=== PATIENT | female | born 1990 ===

== ENCOUNTER 2017-09-10 01:45 | Inpatient (IN) | payer MEDICAID ==
--- NOTE | 2017-09-10 02:32 | OBADHP ---
Datetime: 09/10/2017 02:25 Admit Comment, IP Provider: 40 y/o @ ? 40.1 wks by LMP however no prental care. pt gregory she [place] and never gets a care , no us, no bloodowkr nda all p regancies have been fine with no problems. P tpreorts laboring contraction pian at home since 9pm, dn ies vb, lof, +FM, dnies headache, blurry visin, ruq/epigastric pain VS 146/90 elevted VE; /-2 vtx intact A/P 40 y/o ? 40= wks NO CARE in labor -admit to L+D -npo, ivf -admissin and preeclamptic labs -vs perprotocol of elevated bp -dating sonogram -declined pain manamgent -r/b/a/i of care dw patietn Pelvic Type - PN: Adequate Extremities - PN: Normal Abdomen - PN: Normal Back - PN: Normal Breast - PN: Not Done Lungs - PN: Normal Heart - PN: Normal Thyroid - PN: Not Done Neurologic - PN: Normal HEENT - PN: Normal General - PN: Normal Presentation-Admit: Vertex FHR - Baseline A Provider: 150 Membranes, Provider: Intact Contraction Comments Provider: irregular Gestation - Est Wks by US: ?40.1 IP Hx Assessment: No Care IP Chief Complaint: Uterine contractions NICHD Variability Prov Fetus A: Moderate 6-25bpm FHR Category Provider Fetus A: Category I NICHD Decel Fetus A IP Provider: None Dilatation, Provider: 5 Effacement, Provider: 60 Station, Provider: -2 Genitourinary Exam: Normal DTRs - PN: Normal EGA AdmitDate IP: 40.1 IP Admit Plan: Admit to unit
[2017-09-10] MEDS ORDERED: Penicillin G 5 Million Unit Vial IVPB ONE (02:33)
[2017-09-10] MEDS ORDERED: Lactated Ringer's 1,000 ML IV SCH (02:45)
[2017-09-10] MEDS ORDERED: AMPicillin 2 GM in Sodium Chloride 100 ML IVPB SCH (04:00)
[2017-09-10 04:03] LABS: BASO % 0.4 % (0.0-2.0); EOS % 0.1 % (0.0-4.0); HEMOGLOBIN 8.2 g/dL (11.0-16.0); LYMPH # 1.7 K/uL (1.0-4.3); LYMPH % 24.2 % (20.0-40.0); MEAN CELL VOLUME 70.9 fL (81.0-99.0); MEAN CORPUSCULAR HEMOGLOBIN 21.8 pg (27.0-31.0); MEAN CORPUSCULAR HGB CONC 30.7 g/dL (33.0-37.0); MEAN PLATELET VOLUME 9.4 fL (7.2-11.7); MONO # 0.4 K/uL (0.0-0.8); MONO % 5.3 % (0.0-10.0); NRBC % 0.1 % (0.0-2.0); RBC 3.74 Mil/uL (3.80-5.20); RED CELL DISTRIBUTION WIDTH 17.7 % (11.5-14.5); WHITE BLOOD COUNT 7.1 K/uL (4.8-10.8)
[2017-09-10 04:07] LABS: SQUAMOUS EPITHIAL 65 /hpf (0-5); URINE BACTERIA OCC (<OCC); URINE BILIRUBIN NEGATIVE (NEGATIVE); URINE CLARITY Hazy (Clear); URINE COLOR Amber (YELLOW); URINE GLUCOSE (UA) NORMAL (Normal); URINE LEUKOCYTE ESTERASE 2+ Leu/uL (Negative); URINE PROTEIN 2+ mg/dL (NEGATIVE)
[2017-09-10] MEDS ORDERED: Gentamicin 80 mg/2mL Inj. ONE (04:12)
[2017-09-10 04:18] LABS: ALB/GLOB RATIO 0.9 (1.0-2.1); ALBUMIN 3.1 g/dL (3.5-5.0); ALT/SGPT 15 U/L (9-52); AST/SGOT 19 U/L (14-36); BLOOD UREA NITROGEN 8 mg/dL (7-17); CALCIUM 8.5 mg/dl (8.6-10.4); GFR AFRICAN-AMERICAN > 60; GFR NON-AFRICAN AMERICAN > 60
[2017-09-10 04:29] LABS: URINE BLOOD 1+ (NEGATIVE)
[2017-09-10] MEDS ORDERED: Oxycodone/Acetaminophen 5/325 mg Tab PO PRN ×2 (05:34)
--- NOTE | 2017-09-10 05:38 | OBDS ---
DELIVERY PERSONNEL Delivery Doctor: Deonte Herron MD Dial Lathe Operator: Slick Saavedra RN MATERNAL INFORMATION Delivery Anesthesia: None Medications in Delivery: PITOCIN 20 UNITS Estimated Blood Loss (ml): 100 Placenta Cultured: No Maternal Complications: Other Other Maternal Complications: Grand multip, No PNC, unknown GBS, Anemia Hgb 8.2, obesity Provider Comments: pt had US and c/o pushing, fully dilated pushed precipioutsly delivery of head wt ih shoulders folloew by body. meconum noted. umbilca cord clamped and cut. cord blood and cord gases colleated adn sent x 2. spontnaoeu delivery of intact placenta with membrnea. fundus firm, good hemos taiss, no lacerations, intact perienum. live female weight of 9lb 12 ounces ebwl 100ml no complicationss LABOR SUMMARY EDC: 09/09/2017 00:00 No. Babies in Womb: 1 Attempted: No Labor Anesthesia: None LABOR INFORMATION Reason for Induction: Not Applicable Onset of Labor: 09/09/2017 23:00 Complete Dilatation: 09/10/2017 05:23 Oxytocin: N/A Group B Beta Strep: Done, Result Unknown Antibiotics # of Doses: 2 Antibiotics Time of Last Dose: 0500 Steroids Given: None Reason Steroids Not Administered: Not Applicable MEMBRANES Membranes Rupture Method: Spontaneous Rupture of Membranes: 09/10/2017 05:23 Length of Rupture (hrs): 0.00 Amniotic Fluid Color: Heavy Meconium Amniotic Fluid Amount: Moderate Amniotic Fluid Odor: Normal STAGES OF LABOR Stage 1 hrs: 6 Stage 1 min: 23 Stage 2 hrs: 0 Stage 2 min: 0 Stage 3 hrs: 0 Stage 3 min: 2 Total Time in Labor hrs: 6 Total Time in Labor min: 25 VAGINAL DELIVERY Episiotomy: None Laceration Extension: N/A Laceration Type: None Laceration Repair: Not Applicable Initial Vag Sponge Count: 10 Final Vag Sponge Count: 10 Initial Vag Sharps Count: 0 Final Vag Sharps Count: 0 Sponge Count Correct: Yes; Vaginal Sweep Performed Sharps Count Correct: N/A BABY A INFORMATION Infant Delivery Date/Time: 09/10/2017 05:23 Method of Delivery: Vaginal Born in Route : No : N/A SHOULDER DYSTOCIA BABY A Delivery Date/Time: 09/10/2017 05:23 PRESENTATION/POSITION BABY A Presentation: Cephalic Cephalic Presentation: Vertex Vertex Position: Left Occipital Anterior PLACENTA INFORMATION BABY A Placenta Delivery Time : 09/10/2017 05:25 Placenta Method of Delivery: Spontaneous Placenta Status: Delivered SCORES BABY A Heart Rate 1 min: >100 bpm Resp Effort 1 min: Good Cry Reflex Irritability 1 min: Cough or Sneeze or Pulls Away Muscle Tone 1 min: Active Motion Color 1 min: Body [place], Extremities Blue SCORE 1 MIN: 9 Heart Rate 5 min: >100 bpm Resp Effort 5 min: Good Cry Reflex Irritability 5 min: Cough or Sneeze or Pulls Away Muscle Tone 5 min: Active Motion Color 5 min: Body [place], Extremities Blue SCORE 5 MIN: 9 INFANT INFORMATION BABY A Gestational Age at Delivery: 40.0 Gestational Status: Term Infant Outcome : Liveborn Condition : Stable Infant Sex: Female IDENTIFICATION/MEDS BABY A ID Band Number: [id number] ID Band Location: Right Leg; Right Arm Sensor Applied: Yes Sensor Number: [id number] Sensor Location : Cord Clamp Vitamin K Given : Aquamephyton 1 mg IM Erythromycin Given: Given Both Eyes WEIGHT/LENGTH BABY A Infant Birthweight (gms): 4430 Weight (lb): 9 Infant Weight (oz): 12 Infant Length Inches: 21.00 Length cms: 53.3 CORD INFORMATION BABY A No. Cord Vessels: 3 Nuchal Cord : N/A Cord Blood Taken: Yes Infant Suction: Mouth ASSESSMENT BABY A Infant Complications: Meconium Physical Findings at Delivery: Within Normal Limits Infant Respirations: Appears Normal Ribbon Weaver/ALS Called : No Infant Care By: JUDY JAVED Transferred To: Remains with Mother
[2017-09-10] MEDS ORDERED: Oxytocin 30 UNIT 30 UNITS/500 ML BAG IV SCH (05:45)
--- NOTE | 2017-09-10 06:53 | US ---
EXAM: US Biophysical Profile Without Non-Stress Testing EXAM DATE/TIME: 09/10/2017 2:38 AM CLINICAL HISTORY: 27 years old, female; Pain; Pain indication: Contractions; ; Additional info: No care, supected 40+wk, lga needs dating TECHNIQUE: Real-time ultrasound of the maternal pelvis for biophysical profile evaluation with image documentation. COMPARISON: No relevant prior studies available. FINDINGS: There is a single live intrauterine fetus in vertex presentation. Estimated gestational age is 39 weeks 2 days. Estimated due date is 09/15/2017. Estimated gestational age by dates there is 40 weeks 1 day. Estimated weight is 3787 g (8 lbs. 6 oz.), at approximately 62nd percentile. heart rate is 158 beats per minute. Placenta is anterior, no previa. Amniotic fluid volume is normal, JACQUELYN of 14.65. Cervix is not visualized. BPD: 9.4 cm, 38 weeks 3 days HC: 33.8 cm, previously 8 weeks 5 days AC: 35.7 cm, 39 weeks 4 days FL: 7.85 cm, 40 weeks 1 day The visualized parts include fluid filled stomach and bladder, very limited kidneys. Biophysical profile was performed with following scores: tone 2 breathing 2 movements 2 Amniotic fluid 2 Total score is 8 of 8. IMPRESSION: 1. Single live intrauterine fetus at 29 weeks 2 days. 2. Normal biophysical profile score.
[2017-09-10 16:54] LABS: RAPID PLASMA REAGIN NONREACTIVE (NONREACTIVE)
[2017-09-10] MEDS: Multiple Vitamins Tab PO SCH (18:46)
[2017-09-11 07:46] LABS: BASO % 0.5 % (0.0-2.0); EOS # 0.1 K/uL (0.0-0.7); EOS % 0.8 % (0.0-4.0); HEMOGLOBIN 8.6 g/dL (11.0-16.0); LYMPH # 2.3 K/uL (1.0-4.3); LYMPH % 32.5 % (20.0-40.0); MEAN CELL VOLUME 70.7 fL (81.0-99.0); MEAN CORPUSCULAR HEMOGLOBIN 22.5 pg (27.0-31.0); MEAN CORPUSCULAR HGB CONC 31.8 g/dL (33.0-37.0); MEAN PLATELET VOLUME 8.8 fL (7.2-11.7); MONO # 0.3 K/uL (0.0-0.8); MONO % 4.5 % (0.0-10.0); NEUT # 4.4 K/uL (1.8-7.0); NEUT % 61.7 % (50.0-75.0); RBC 3.82 Mil/uL (3.80-5.20); RED CELL DISTRIBUTION WIDTH 17.8 % (11.5-14.5); WHITE BLOOD COUNT 7.2 K/uL (4.8-10.8)
[2017-09-11] MEDS: Multiple Vitamins Tab PO SCH (10:32)
--- NOTE | 2017-09-11 17:05 | OBPPN ---
Datetime: 09/11/2017 15:03 PP Pain Prov: Within normal limits PP Nausea Prov: Denies PP Flatus Prov: Yes PP BM Prov: No PP Heart Prov: Normal PP Lungs Prov: Normal PP Abdomen/Uterus Prov: Normal PP Lochia Prov: Normal PP Extremities Prov: Normal PP Progress Prov: Normal PP Comments Phys Exam Prov: Abdomen: Soft, Non-tender, fundus is firm and 1cm below the umbilicus PP Impression Prov: Normal progression PP Plan Prov: Continue present management PP Progress Note Prov: Patient was seen and examined at bedside. Patient reports that she is doing w ell and has no complaints. Patient admits to moderate lochia, passing flatus, urinating without diffi culties. Patient is ambulating and tolerating diet. Patient denies fever, chills, nausea, vomiting, a bdominal pain, dizziness and calf tenderness Physical Exam: Gen: NAD, AAOx3 Cardio: RRR, +S1, S2 Pulm: CTA bilaterally Abdomen: Soft, non-tender, +BS , fundus is firm and below the umbilicus Ext: No cyanosis, no clubbing and no edema VS: WNL, as noted in vs table above Labs: 7.1>8.6/26.5<301 7.2>8.6/27.1<319 O+, rubella pending A/P: 27 y/o [id number] at 40.1 weeks, who is now , S/P , PPD #1 1. Afebrile, stable 2. Pain is well-controlled 3. Encourage PO hydration and ambulation 4. Encourage 5. Anemia: Ferrous sulfate 325mg PO TID 6. Continue present management 7. Anticipate d/c tomorrow Plans and management discussed with attending, Dr. Yefri Beck, , PGY-1
[2017-09-12] MEDS: Multiple Vitamins Tab PO SCH (10:45)
--- NOTE | 2017-09-12 14:09 | CP.PCM.DIS ---
Provider - Provider Date of Admission: 09/10/17 02:30 Attending physician: Tamia Herron MD Time Spent in preparation of Discharge (in minutes): 30 Diagnosis - Discharge Diagnosis (1) Normal vaginal delivery Status: Acute Onset Date: 01/08/14 Hospital Course - Lab Results Lab Results: Micro Results 09/10/17 03:58 Urine Urine Culture - Final No Growth (<1,000 CFU/ML) Most Recent Lab Values WBC 7.2 K/uL (4.8-10.8) 09/11/17 07:34 RBC 3.82 Mil/uL (3.80-5.20) 09/11/17 07:34 Hgb 8.6 g/dL (11.0-16.0) L 09/11/17 07:34 Hct 27.1 % (34.0-47.0) L 09/11/17 07:34 MCV 70.7 fL (81.0-99.0) L 09/11/17 07:34 MCH 22.5 pg (27.0-31.0) L 09/11/17 07:34 MCHC 31.8 g/dL (33.0-37.0) L 09/11/17 07:34 RDW 17.8 % (11.5-14.5) H 09/11/17 07:34 Plt Count 319 K/uL (130-400) 09/11/17 07:34 MPV 8.8 fL (7.2-11.7) 09/11/17 07:34 Neut % (Auto) 61.7 % (50.0-75.0) 09/11/17 07:34 Lymph % (Auto) 32.5 % (20.0-40.0) 09/11/17 07:34 [place] % (Auto) 4.5 % (0.0-10.0) 09/11/17 07:34 Eos % (Auto) 0.8 % (0.0-4.0) 09/11/17 07:34 Baso % (Auto) 0.5 % (0.0-2.0) 09/11/17 07:34 Neut # (Auto) 4.4 K/uL (1.8-7.0) 09/11/17 07:34 Lymph # (Auto) 2.3 K/uL (1.0-4.3) 09/11/17 07:34 [place] # (Auto) 0.3 K/uL (0.0-0.8) 09/11/17 07:34 Eos # (Auto) 0.1 K/uL (0.0-0.7) 09/11/17 07:34 Baso # (Auto) 0.0 K/uL (0.0-0.2) 09/11/17 07:34 Sodium 142 mmol/L (132-148) 09/10/17 03:58 Potassium 4.0 mmol/L (3.6-5.2) 09/10/17 03:58 Chloride 109 mmol/L (98-107) H 09/10/17 03:58 Carbon Dioxide 21 mmol/L (22-30) L 09/10/17 03:58 Anion Gap 16 (10-20) 09/10/17 03:58 BUN 8 mg/dL (7-17) 09/10/17 03:58 Creatinine 0.5 mg/dL (0.7-1.2) L 09/10/17 03:58 Est GFR ( Amer) > 60 09/10/17 03:58 Est GFR (Non-Af Amer) > 60 09/10/17 03:58 Random Glucose 82 mg/dL (65-105) 09/10/17 03:58 Hemoglobin A1c 6.1 % (4.2-6.5) 09/11/17 07:34 Uric Acid 4.0 mg/dL (2.2-7.5) 09/10/17 03:58 Calcium 8.5 mg/dl (8.6-10.4) L 09/10/17 03:58 Total Bilirubin 0.4 mg/dL (0.2-1.3) 09/10/17 03:58 AST 19 U/L (14-36) 09/10/17 03:58 ALT 15 U/L (9-52) 09/10/17 03:58 Alkaline Phosphatase 182 U/L (38-126) H 09/10/17 03:58 Lactate Dehydrogenase 374 U/L (313-618) 09/10/17 03:58 Total Protein 6.7 g/dL (6.3-8.3) 09/10/17 03:58 Albumin 3.1 g/dL (3.5-5.0) L 09/10/17 03:58 Globulin 3.6 gm/dL (2.2-3.9) 09/10/17 03:58 Albumin/Globulin Ratio 0.9 (1.0-2.1) L 09/10/17 03:58 Urine Color [place] (YELLOW) 09/10/17 03:58 Urine Clarity Hazy (Clear) 09/10/17 03:58 Urine pH 6.0 (5.0-8.0) 09/10/17 03:58 Ur Specific [place] 1.028 (1.003-1.030) 09/10/17 03:58 Urine Protein 2+ mg/dL (NEGATIVE) H 09/10/17 03:58 Urine Glucose (UA) Normal mg/dL (Normal) 09/10/17 03:58 Urine Ketones Negative mg/dL (NEGATIVE) 09/10/17 03:58 Urine Blood 1+ (NEGATIVE) H 09/10/17 03:58 Urine Nitrate Negative (NEGATIVE) 09/10/17 03:58 Urine Bilirubin Negative (NEGATIVE) 09/10/17 03:58 Urine Urobilinogen 4.0 mg/dL (0.2-1.0) H 09/10/17 03:58 Ur Leukocyte Esterase 2+ [place]/uL (Negative) H 09/10/17 03:58 Urine WBC (Auto) 20 /hpf (0-5) H 09/10/17 03:58 Urine RBC (Auto) 3 /hpf (0-3) 09/10/17 03:58 Ur Squamous Epith Cells 65 /hpf (0-5) H 09/10/17 03:58 Urine Bacteria Occ (<OCC) H 09/10/17 03:58 RPR Nonreactive (NONREACTIVE) 09/10/17 03:58 Hep Bs Antigen Negative (NEGATIVE) 09/10/17 10:28 HIV 1&2 Antibody Screen Negative (NEGATIVE) 09/10/17 03:58 Rubella IgG Antibody Positive (POSITIVE) 09/10/17 03:58 VZV IgG Antibody Positive (POSITIVE) 09/10/17 03:58 Blood Type O POSITIVE 09/10/17 02:35 Antibody Screen Negative 09/10/17 02:35 - Hospital Course Hospital Course: PT is breastfeeeding, tolerating PO diet, ambulating. Discharge Exam - Eye Exam Eye Exam: Normal appearance - ENT Exam ENT Exam: Normal Exam - Neck Exam Neck exam: Normal Inspection - Respiratory Exam Respiratory Exam: NORMAL BREATHING PATTERN - Exam Exam: NORMAL INSPECTION External exam: NORMAL EXTERNAL EXAM Speculum exam: NORMAL SPECULUM EXAM Bimanual exam: NORMAL BIMANUAL EXAM - Back Exam Back exam: NORMAL INSPECTION Discharge Plan - Follow Up Plan Condition: GOOD Disposition: HOME/ ROUTINE Instructions: Depression, Reducing the Risk of Sudden Infant Syndrome, Jaundice, Babies (DC), [place] Hypoglycemia (DC), Feeding Your , Your Baby, Bleeding, What to Watch for After You Have a Baby
[2017-09-12 20:19] VITALS: BP 127/79; PULSE 72; RESP 18; TEMP 98.4; O2SAT 98
== END 2017-09-12 16:09 | disposition home or self-care (01) | DRG 775 ==
LOC: C.EROB 01:45 → C.4D 02:30 → C.4M 08:45
PROVIDERS: ADMIT Obstetrics & Gynecology; ATTEND Obstetrics & Gynecology
PROC: 10E0XZZ Delivery of Products of Conception, External Approach (ICD-10-PCS; principal; 2017-09-10)
DX: O99.02 Anemia complicating childbirth (principal); D64.9 Anemia, unspecified; Z3A.40 40 weeks gestation of pregnancy; O48.0 Post-term pregnancy; O09.33 Supervision of pregnancy with insufficient antenatal care, third trimester; Z37.0 Single live birth